=== PATIENT | female | born 2000 | race Caucasian/White ===

== ENCOUNTER → 2021-01-30 | Outpatient (CLI) | payer BC ==
--- NOTE | 2021-01-30 11:40 | US ---
EXAMINATION TYPE: US pelvis complete DATE OF EXAM: 01/30/2021 COMPARISON: NONE CLINICAL HISTORY: 20-year-old female L68.0 HIRSUTISM. TECHNIQUE: Transabdominal sonographic images of the pelvis were acquired. Date of LMP: 01/25/2021 FINDINGS: EXAM MEASUREMENTS: Uterus: 7.2x5.1x3.2 cm Endometrial Stripe: 0.3 cm Right Ovary: 2.4x1.8x1.6 cm Left Ovary: 3.7x2.4x1.8 cm 1. Uterus: Anteverted and otherwise wnl 2. Endometrium: wnl 3. Right Ovary: wnl with trace amount of fluid adjacent 4. Left Ovary: wnl 5. Bilateral Adnexa: wnl 6. Posterior cul-de-sac: Small amount of fluid IMPRESSION: 1. Trace fluid adjacent to the right ovary and mild cul-de-sac free fluid. Both physiologic. 2. Otherwise, unremarkable transabdominal sonographic examination of the pelvis.
--- NOTE | 2021-01-30 12:31 | ECHOF ---
Referral Reason:R01.1 Cardiac murmur MEASUREMENTS -------- HEIGHT: 170.2 cm WEIGHT: 79.8 kg BP: RVIDd: 2.7 cm (< 3.3) IVSd: 1.0 cm (0.6 - 1.1) LVIDd: 4.4 cm (3.9 - 5.3) LVPWd: 1.1 cm (0.6 - 1.1) IVSs: 1.2 cm LVIDs: 3.3 cm LVPWs: 1.2 cm LA Diam: 3.2 cm (2.7 - 3.8) Ao Diam: 2.9 cm (2.0 - 3.7) AV Cusp: 1.7 cm (1.5 - 2.6) LA Diam: 3.7 cm (2.7 - 3.8) MV EXCURSION: 19.668 mm (> 18.000) MV EF SLOPE: 141 mm/s (70 - 150) EPSS: 0.3 cm MV E Ji: 0.67 m/s MV DecT: 202 ms MV A Ji: 0.51 m/s MV E/A Ratio: 1.31 RAP: 5.00 mmHg RVSP: 18.11 mmHg FINDINGS -------- Sinus rhythm. This was a technically good study. LV size, wall thickness and systolic function are normal, with an EF greater than 55%. The left karel tricular size is normal. The right ventricle is normal in size. The left atrial size is normal. The right atrial size is normal. The aortic valve is trileaflet, and appears structurally normal. No aortic stenosis or regurgitation. Normal appearing mitral valve. Trace tricuspid regurgitation present. Right ventricular systolic pressure is normal at < 35 mmHg. Trace/mild (physiologic) pulmonic regurgitation. There is no pericardial effusion. CONCLUSIONS -------- 1. LV size, wall thickness and systolic function are normal, with an EF greater than 55%. 2. The left ventricular size is normal. 3. The right ventricle is normal in size. 4. The left atrial size is normal. 5. The right atrial size is normal. 6. The aortic valve is trileaflet, and appears structurally normal. No aortic stenosis or regurgitati on. 7. Normal appearing mitral valve. 8. Trace tricuspid regurgitation present. 9. Trace/mild (physiologic) pulmonic regurgitation. 10. There is no pericardial effusion. LOCKSMITH: Sonia Diaz RDCS
== END | disposition home or self-care (01) ==
LOC: RADUSWWP 09:38
PROVIDERS: ATTEND Family Medicine
DX: R01.1 Cardiac murmur, unspecified (principal); L68.0 Hirsutism
CPT/HCPCS: 76856; 93306